=== PATIENT | male | born 1995 | race Native Hawaiian/Other Pacific Islander ===

== ENCOUNTER 2020-08-20 09:27 | Emergency (ER) | payer OTHER ==
[2020-08-20 09:38] VITALS: BP 130/93
[2020-08-20] MEDS ORDERED: HYDROcodone/ACETAMINOPHEN 5-325 MG TAB PO STA (09:39)
[2020-08-20] MEDS ORDERED: ceFAZolin 1 GM VIAL IM STA ×2 (09:40→10:18)
--- NOTE | 2020-08-20 10:27 | XRay Report ---
XR finger(s) 2+V LT INDICATION / CLINICAL INFORMATION: laceration and deformity 5th digit. COMPARISON: None FINDINGS/IMPRESSION: There is evidence of soft tissue injury at the dorsal aspect of the left small finger at the DIP join t. Tiny radiodensities project at the laceration bed, best seen on oblique and lateral views, may ref lect tiny bone fragments or retained foreign bodies. Otherwise, no acute fracture. There is flexion d eformity at the DIP joint, consistent with extensor tendon injury. Signer Name: Vish Almanzar MD Signed: 08/20/2020 10:22 AM Workstation Name: [id number]
--- NOTE | 2020-08-20 10:47 | Emergency Department Report ---
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 Reports having dull throbbing pain and inability to mobilize the finger since that time presents emergency department for further evaluation and treatment. MD Complaint: Injury to:: left, finger (5th digit) Other Extremity Injury: Fingers: Left (Fifth digit) Other Injuries: none Place: work Improves With: none Worsens With: none Context: direct blow, injury Associated Symptoms: denies: numbness, suspects foreign body, nausea/vomiting, heard/felt popping sensat - Related Data Previous Rx's Medication Instructions Recorded Last Taken Type Acetaminophen/Codeine [Tylenol 1 tab PO Q6H PRN #10 tab 08/20/20 Unknown Rx /Codeine # 3 tab] Chlorhexidine Gluconate 5 ml TP BID #240 liquid 08/20/20 Unknown Rx [Antiseptic Skin Cleanser] cephALEXin [Keflex] 500 mg PO Q6HR #40 capsule 08/20/20 Unknown Rx Allergies Allergy/AdvReac Type Severity Reaction Status Date / Time No Known Allergies Allergy Verified 08/20/20 10:18 ED Review of Systems ROS: Stated complaint: FINGER INJURY Other details as noted in HPI Comment: All other systems reviewed and negative ED Past Medical Hx - Past Medical History Previous Medical History?: No - Surgical History Past Surgical History?: Yes Additional Surgical History: right inquinal hernia - Social History Smoking Status: Never Smoker Substance Use Type: Alcohol - Medications Home Medications: Home Medications Medication Instructions Recorded Confirmed Last Taken Type Acetaminophen/Codeine [Tylenol 1 tab PO Q6H PRN #10 tab 08/20/20 Unknown Rx /Codeine # 3 tab] Chlorhexidine Gluconate 5 ml TP BID #240 liquid 08/20/20 Unknown Rx [Antiseptic Skin Cleanser] cephALEXin [Keflex] 500 mg PO Q6HR #40 capsule 08/20/20 Unknown Rx ED Physical Exam - General Limitations: No Limitations General appearance: alert, in no apparent distress - Head Head exam: Present: atraumatic, normocephalic - Eye Eye exam: Present: normal appearance, PERRL Pupils: Present: normal accommodation - ENT ENT exam: Present: normal exam, normal orophraynx, mucous membranes moist - Neck Neck exam: Present: normal inspection - Respiratory Respiratory exam: Present: normal lung sounds bilaterally. Absent: respiratory distress - Cardiovascular Cardiovascular Exam: Present: regular rate, normal rhythm. Absent: systolic murmur, diastolic murmur, rubs, gallop - GI/Abdominal GI/Abdominal exam: Present: soft, normal bowel sounds - Rectal Rectal exam: Present: deferred - Expanded Upper Extremity Exam Left Hand Wrist exam: Present: tenderness, laceration, deformity Hand L/R Back: 1 - Laceration site irregular involving the tendon unable to extend Vascular: Present: normal capillary refill - Back Exam Back exam: Present: normal inspection. Absent: CVA tenderness (R), CVA tenderness (L), paraspinal tenderness, vertebral tenderness - Neurological Exam Neurological exam: Present: alert, oriented X3, CN II-XII intact, normal gait - Psychiatric Psychiatric exam: Present: normal affect, normal mood. Absent: anxious, flat affect - Skin Skin exam: Present: warm, dry, intact, normal color. Absent: rash ED Course Vital Signs 08/20/20 09:33 Temperature 98.7 F Pulse Rate 114 H Respiratory 20 Rate Blood Pressure 130/93 O2 Sat by Pulse 98 Oximetry ED Medical Decision Making - Radiology Data Radiology results: report reviewed [address] [place] [id number] XRay Report Signed Patient: RUTH ANN TUCKER MR# : [id number] : 1995 Acct:[id number] Age/Sex: 25 / M ADM Date: 08/20/20 Loc: ED Attending Dr: Ordering Physician: LUIS RODRIGUEZ Date of Service: 08/20/20 Procedure(s): XR finger(s) 2+V LT Accession Number(s): [id number] cc: LUIS RODRIGUEZ Fluoro Time In Minutes: XR finger(s) 2+V LT INDICATION / CLINICAL INFORMATION: laceration and deformity 5th digit. COMPARISON: None FINDINGS/IMPRESSION: There is evidence of soft tissue injury at the dorsal aspect of the left small finger at the DIP joint. Tiny radiodensities project at the laceration bed, best seen on oblique and lateral views, may reflect tiny bone fragments or retained foreign bodies. Otherwise, no acute fracture. There is flexion deformity at the DIP joint, consistent with extensor tendon injury. Signer Name: Manuel Almanzar MD Signed: 08/20/2020 10:22 AM Workstation Name: [id number] Transcribed By: OSCAR Dictated By: MANUEL ALMANZAR MD Electronically Authenticated By: MANUEL ALMANZAR MD Signed Date/Time: 08/20/20 1022 DD/ 1020 TD/TT: Critical care attestation.: If time is entered above; I have spent that time in minutes in the direct care of this critically ill patient, excluding procedure time. ED Disposition Clinical Impression: Laceration of finger of left hand with tendon involvement Disposition: DC-01 TO HOME OR SELFCARE Is pt being admited?: No Does the pt Need Aspirin: No Condition: Stable Instructions: Wound Infection, [id number], Sutured Wound Care, Laceration Care, Adult, [id number], Sutures, [place], or Adhesive Wound Closure, Tendon Repair, Care After Prescriptions: Chlorhexidine Gluconate [Antiseptic Skin Cleanser] 5 ml TP BID #240 liquid cephALEXin [Keflex] 500 mg PO Q6HR #40 capsule Acetaminophen/Codeine [Tylenol /Codeine # 3 tab] 1 tab PO Q6H PRN #10 tab PRN Reason: pain Referrals: DAISHA SANTANA MD [Staff Physician] - 3-5 Days [facility] [Provider Group] - 3-5 Days
[2020-08-20] MEDS ORDERED: LIDOCAINE (2%) 20 MG/1 ML VIAL 20 ML MDV INFILTRATI STA (10:51)
[2020-08-20] MEDS ORDERED: SODIUM CHLORIDE IRRI 500 ML 500 ML IR ONE (10:57)
== END 2020-08-20 12:56 | disposition home or self-care (01) ==
LOC: ED 09:27
DX: S61.217A Laceration without foreign body of left little finger without damage to nail, initial encounter (principal); Z98.890 Other specified postprocedural states; Z79.899 Other long term (current) drug therapy; X58.XXXA Exposure to other specified factors, initial encounter; Y93.89 Activity, other specified; Y92.89 Other specified places as the place of occurrence of the external cause; Y99.8 Other external cause status
CPT/HCPCS: 29130; 73140; 96372; 99283; J0690